=== PATIENT | female | born 1965 | race Caucasian/White ===

== ENCOUNTER 2024-11-04 08:15 | Outpatient (CLI) | payer OTHER ==
[2024-11-04] MEDS ORDERED: DICY20TA PO (14:18)
[2024-11-04] MEDS ORDERED: LEVSIN0.125 MG PO (14:18)
== END 2024-11-04 08:27 | disposition home or self-care (01) ==
LOC: TOM 08:15
PROVIDERS: ATTEND Surgery
DX: C19 Malignant neoplasm of rectosigmoid junction (principal); R59.0 Localized enlarged lymph nodes; R10.9 Unspecified abdominal pain

== ENCOUNTER 2024-11-04 14:04 | Inpatient (IN) | payer OTHER ==
[~2024-11-04] VITALS: Ht 162.6 cm; Wt 67.1 kg
[2024-11-04] MEDS ORDERED: DICY20TA PO (14:18)
[2024-11-04] MEDS ORDERED: LEVSIN0.125 MG PO (14:18)
[2024-11-04 15:28] LABS: RH POSITIVE
[2024-11-08] MEDS ORDERED: OxyCODONE HCL 5 MG TABLET (ROXICODONE) PO PRN (10:00)
[2024-11-08] MEDS ORDERED: ONDANSETRON HCL 2 MG/ML VIAL IV PRN (10:00)
[2024-11-08] MEDS ORDERED: MORPHINE SULFATE 4 MG/ML CARTRIDGE IV PRN (10:00)
[2024-11-08] MEDS ORDERED: RINGERS SOLUTION,LACTATED 1,000 ML IV SCH (10:00)
[2024-11-08] MEDS ORDERED: DEXTROSE 50 % IN WATER 0.5 G/ML VIAL IV PRN (10:00)
[2024-11-08] MEDS ORDERED: MORPHINE SULFATE 4 MG/ML VIAL IV ONE ×2 (10:25→10:55)
[2024-11-08] MEDS ORDERED: ONDANSETRON HCL 2 MG/ML VIAL IV ONE (10:35)
[2024-11-08 11:46] LABS: BASO % 0.4 % (0.1-1.2); EOS # 0.04 (0.04-0.54); EOS % 0.2 % (0.7-7.0); LYMPH # 1.62 (1.18-3.74); LYMPH % 9.9 % (19.3-53.1); MEAN PLATELET VOLUME 9.10 fl (9.4-12.4); MONO # 1.16 (0.24-0.82); MONO % 7.1 % (4.7-12.5); NEUT # 13.33 (1.56-6.13); NEUT % 81.8 % (34.0-71.1); RED CELL DISTRIBUTION WIDTH 12.2 % (11.6-14.4)
[2024-11-08] MEDS ORDERED: CEFTRIAXONE SODIUM 2,000 MG VIAL IV SCH (12:00)
[2024-11-08] MEDS ORDERED: BUPIVACAINE HCL 30 ML VIAL IJ ONE (12:00)
[2024-11-08] MEDS ORDERED: CEFOXITIN SODIUM 2,000 MG in 0.9 % SODIUM CHLORIDE 100 ML IV SCH (12:00)
[2024-11-08] MEDS ORDERED: LIDOCAINE HCL 1%/EPINEPHRINE 20ML VIAL IJ ONE (12:00)
[2024-11-08] MEDS ORDERED: SUGAMMADEX SODIUM 200 MG/2 ML VIAL IV ONE (12:15)
[2024-11-08 13:05] LABS: BUN CREA RATIO 13.0 (7.0-25.0); CREATININE SERUM 0.62 mg/dL (0.55-1.02); GFR 98.52; GLUCOSE FASTING 162.0 mg/dL (65-100); OSMOLALITY SERUM 283.0 MOSM/KG (275-295)
[2024-11-08] MEDS ORDERED: ACETAMINOPHEN 500 MG GEL..CAP PO SCH (14:00)
[2024-11-08] MEDS ORDERED: GABAPENTIN 300 MG CAPSULE PO SCH (17:00)
[2024-11-08] MEDS ORDERED: FAMOTIDINE/PF 20 MG/2 ML VIAL IV PUSH SCH (21:00)
[2024-11-09 00:49] VITALS: BP 104/68; O2SAT 97
[2024-11-09 07:13] LABS: BASO % 0.4 % (0.1-1.2); EOS # 0.01 (0.04-0.54); EOS % 0.1 % (0.7-7.0); LYMPH # 1.91 (1.18-3.74); LYMPH % 16.8 % (19.3-53.1); MEAN PLATELET VOLUME 9.60 fl (9.4-12.4); MONO # 1.10 (0.24-0.82); MONO % 9.7 % (4.7-12.5); NEUT # 8.26 (1.56-6.13); NEUT % 72.5 % (34.0-71.1); RED CELL DISTRIBUTION WIDTH 12.5 % (11.6-14.4)
[2024-11-09 07:32] LABS: BUN CREA RATIO 7.0 (7.0-25.0); CREATININE SERUM 0.42 mg/dL (0.55-1.02); GFR 154.43; GLUCOSE FASTING 101.0 mg/dL (65-100); OSMOLALITY SERUM 280.0 MOSM/KG (275-295)
[2024-11-09 08:00] VITALS: BP 108/67; O2SAT 99
[2024-11-09] MEDS ORDERED: MAGNESIUM SULFATE IN WATER 50 ML IV NR (11:00)
[2024-11-09 16:00] VITALS: BP 107/67; O2SAT 94
[2024-11-09] MEDS ORDERED: ENOXAPARIN SODIUM 40 MG/0.4 ML SYRINGE SUBCUTANEO SCH (17:00)
[2024-11-10 01:39] VITALS: BP 107/69; O2SAT 96
[2024-11-10 06:12] LABS: BASO % 0.4 % (0.1-1.2); EOS # 0.01 (0.04-0.54); EOS % 0.1 % (0.7-7.0); LYMPH # 1.47 (1.18-3.74); LYMPH % 11.0 % (19.3-53.1); MEAN PLATELET VOLUME 9.80 fl (9.4-12.4); MONO # 1.21 (0.24-0.82); MONO % 9.1 % (4.7-12.5); NEUT # 10.53 (1.56-6.13); NEUT % 78.8 % (34.0-71.1); RED CELL DISTRIBUTION WIDTH 12.5 % (11.6-14.4)
[2024-11-10 07:08] LABS: BUN CREA RATIO 13.0 (7.0-25.0); CREATININE SERUM 0.32 mg/dL (0.55-1.02); GFR 211.35; GLUCOSE FASTING 120.0 mg/dL (65-100); OSMOLALITY SERUM 281.0 MOSM/KG (275-295)
[2024-11-10 08:00] VITALS: BP 104/68; O2SAT 95
[2024-11-10] MEDS ORDERED: ENOXAPARIN SODIUM 40 MG/0.4 ML SYRINGE SUBCUTANEO SCH (09:00)
[2024-11-10] MEDS ORDERED: MORPHINE SULFATE 4 MG/ML CARTRIDGE IV PRN (11:30)
[2024-11-10] MEDS ORDERED: OxyCODONE HCL 5 MG TABLET (ROXICODONE) PO PRN (11:30)
[2024-11-10] MEDS ORDERED: POTASSIUM CHLORIDE 20MEQ/100ML H2O PB IV NR (12:30)
[2024-11-10 16:00] VITALS: BP 117/68; O2SAT 97
[2024-11-10] MEDS ORDERED: POTASSIUM PHOS,M-BASIC-D-BASIC 3 MM/ML VIAL IV NR (18:00)
[2024-11-11 02:04] VITALS: BP 122/66; O2SAT 98
[2024-11-11 08:00] VITALS: BP 106/62; O2SAT 98
[2024-11-11] MEDS ORDERED: INTESTINEX680 M1 PO (13:14)
[2024-11-11] MEDS ORDERED: TYLENOL ARTHRI650 MG PO (13:14)
[2024-11-11] MEDS ORDERED: NEURONTIN300 MG PO (13:14)
== END 2024-11-11 13:58 | disposition home or self-care (01) | DRG 331 ==
LOC: O/R 11-08 05:22 → SURH 11-08 07:56
PROVIDERS: Internal Medicine Geriatric Medicine; ADMIT Surgery; ATTEND Surgery
PROC: 0DBP4ZZ Excision of Rectum, Percutaneous Endoscopic Approach (ICD-10-PCS; 2024-11-08)
PROC: 07BB4ZZ Excision of Mesenteric Lymphatic, Percutaneous Endoscopic Approach (ICD-10-PCS; 2024-11-08)
PROC: 0DJD8ZZ Inspection of Lower Intestinal Tract, Via Natural or Artificial Opening Endoscopic (ICD-10-PCS; 2024-11-08)
PROC: 0DTN4ZZ Resection of Sigmoid Colon, Percutaneous Endoscopic Approach (ICD-10-PCS; principal; 2024-11-08 10:00)
DX: C19 Malignant neoplasm of rectosigmoid junction (principal); R59.0 Localized enlarged lymph nodes; F17.200 Nicotine dependence, unspecified, uncomplicated